=== PATIENT | female | born 1965 | race Two or more races ===

== ENCOUNTER 2018-07-25 17:56 | Emergency (ER) | payer SELFPAY ==
[~2018-07-25] VITALS: Ht 167.6 cm; Wt 65.8 kg
--- NOTE | 2018-07-25 18:10 | NUR ---
BIB SELF W L WRIST DEFORMITY S/P FALL OFF A LADDER. TO ER BED 5, HOOKED TO MONITOR, AWAITING MD DIEGO.
--- NOTE | 2018-07-25 18:11 | NUR ---
DR ASKEW AT BEDSIDE
[2018-07-25] MEDS ORDERED: HYDROCODONE/APAP 5/325MG 1 EACH TABLET ONE (18:13)
[2018-07-25] MEDS ORDERED: ONDANSETRON 4 MG TAB.RAPDIS ONE (18:13)
[2018-07-25] MEDS ORDERED: ONDANSETRON 4 MG TAB.RAPDIS SL ONE (18:30)
[2018-07-25] MEDS ORDERED: HYDROCODONE/APAP 5/325MG 1 EACH TABLET PO ONE (18:30)
[2018-07-25] MEDS ORDERED: LIDOCAINE 1%-EPI 1:100,000 20 ML VIAL ONE (18:34)
--- NOTE | 2018-07-25 18:50 | NUR ---
CLOSED REDUCTION INTERNAL FIXATION DONE BY DR ASKEW AND CODY COLÓN
--- NOTE | 2018-07-25 19:31 | NUR ---
Patient discharged to home in stable condition. Written and verbal after care instructions given. Patient verbalizes understanding of instruction.
[2018-07-25 19:32] VITALS: BP 110/68
== END 2018-07-25 19:38 | disposition home or self-care (01) ==
LOC: ER 17:58
DX: S52.572A Other intraarticular fracture of lower end of left radius, initial encounter for closed fracture (principal); S52.612A Displaced fracture of left ulna styloid process, initial encounter for closed fracture; Z88.0 Allergy status to penicillin; W11.XXXA Fall on and from ladder, initial encounter; Y93.89 Activity, other specified; Y92.89 Other specified places as the place of occurrence of the external cause; Y99.8 Other external cause status
CPT/HCPCS: 25605; 73100; 73110; 99284; A4606; A6403; J3490; Q0162